=== PATIENT | female | born 1995 | race Caucasian/White ===

== ENCOUNTER 2016-12-07 19:41 | Emergency (ER) | payer OTHER, BC ==
[2016-12-07 19:58] VITALS: BP 117/80
--- NOTE | 2016-12-07 20:19 | UC ---
FLU HPI - HPI Summary HPI Summary: 21 year old female with 3 days of fever, headache, post nasal drip, cough and chest congestion She is concerned that she has the flu but did get a flu shot - History of Current Complaint Chief Complaint: UCGeneralIllness Stated Complaint: COUGH CONGESTION Time Seen by Provider: 12/07/16 20:11 Hx Obtained From: Patient Hx Last Menstrual Period: 12/07/16 ?: No Onset/Duration: Sudden Onset, Lasting Days - 3 Severity Currently: Moderate Severity Initially: Moderate Associated Signs & Symptoms: Positive: Fever - 101, T Max - 101, Myalgia, Cough , Sore Throat, Nasal Congestion, Headache. Negative: Vomiting, Diarrhea Related Hx: Possible Flu/Infectious Exposure - Risk Factors Influenza Risk Factors: Negative - Allergy/Home Medications Allergies/Adverse Reactions: Allergies Allergy/AdvReac Type Severity Reaction Status Date / Time Tree Nuts Allergy Swelling Verified 08/18/16 13:02 Of Face,Lips,& Throat PMH/Surg Hx/FS Hx/Imm Hx Previously Healthy: Yes Endocrine History Of: Denies: Diabetes Cardiovascular History Of: Denies: Cardiac Disorders Respiratory History Of: Denies: Asthma - Surgical History Surgical History: Yes Surgery Procedure, Year, and Place: wisdom teeth - Family History Known Family History: Positive: None, Respiratory Disease - Social History Occupation: Student Lives: With Family Alcohol Use: Occasionally Substance Use Type: None Smoking Status (MU): Never Smoked Tobacco - Immunization History Most Recent Influenza Vaccination: [id number] Review of Systems Constitutional: Fever, Chills Skin: Negative Eyes: Negative ENT: Sore Throat, Nasal Discharge Respiratory: Cough Cardiovascular: Negative Gastrointestinal: Negative Genitourinary: Negative Motor: Negative Neurovascular: Negative Musculoskeletal: Myalgia Neurological: Negative Psychological: Negative All Other Systems Reviewed And Are Negative: Yes Physical Exam Triage Information Reviewed: Yes Appearance: No Pain Distress, Well-Nourished, Ill-Appearing - mildly Vital Signs: Initial Vital Signs Temp 101 F 12/07/16 19:54 Pulse 101 12/07/16 19:54 Resp 17 12/07/16 19:54 BP 117/80 12/07/16 19:54 Pulse Ox 99 12/07/16 19:54 Vital Signs Reviewed: Yes Eyes: Positive: Conjunctiva Clear. Negative: Discharge ENT: Positive: Hearing grossly normal, Pharyngeal erythema, TMs normal. Negative: Nasal congestion, Nasal drainage, Tonsillar swelling Neck: Positive: Supple, Nontender, Enlarged Nodes @ - bilateral AC Respiratory: Positive: Lungs clear, Normal breath sounds, No respiratory distress Cardiovascular: Positive: RRR, No Murmur Abdomen Description: Positive: Nontender, No Organomegaly, Soft. Negative: CVA Tenderness (R), CVA Tenderness (L) Musculoskeletal: Positive: Strength Intact, ROM Intact Neurological: Positive: Alert, Muscle Tone Normal Psychological: Positive: Age Appropriate Behavior - pleasant and cooperative Skin: Negative: rashes, breakdown Flu Course/Dx - Course Course Of Treatment: Rapid Influenza A = Positive - Differential Dx/Diagnosis Differential Diagnosis/HQI/PQRI: Influenza, Upper Respiratory Infection Provider Diagnoses: Influenza A Discharge - Discharge Plan Condition: Stable Disposition: HOME Patient Education Materials: Influenza (ED) Referrals: Non Staff,Doctor [Primary Care Provider] - Additional Instructions: Take Tylenol 650mg - 1000 mg every 6 - 8 hours as needed for pain or fever Take Ibuprofen 600mg every 6 hour as needed for pain or fever
[2016-12-07] MEDS ORDERED: Ibuprofen TAB* 600 MG PO ONE (20:33)
== END 2016-12-07 21:00 | disposition home or self-care (01) ==
LOC: UCCORT 19:41
DX: J09.X2 Influenza due to identified novel influenza A virus with other respiratory manifestations (principal)
CPT/HCPCS: 87502; 99211; A9270-GY; G0463

== ENCOUNTER 2016-12-17 20:27 | Emergency (ER) | payer OTHER, BC ==
[2016-12-17 20:48] VITALS: BP 123/82
--- NOTE | 2016-12-17 21:09 | UC ---
Respiratory Complaint HPI - HPI Summary HPI Summary: 21 yo female was dxed with flu about 2 weeks ago cough persists productive at times has not had a fever for a while no CP or SOB now eyes red and matted shut in AM - History of Current Complaint Chief Complaint: UCGeneralIllness Stated Complaint: PINK EYE/COUGH/CONGESTION/SORE THROAT Time Seen by Provider: 12/17/16 21:02 Hx Obtained From: Patient Hx Last Menstrual Period: 12/05/16 Onset/Duration: Gradual Onset, Lasting Weeks Timing: Constant Severity Initially: Severe Severity Currently: Moderate Pain Intensity: 2 Pain Scale Used: 0-10 Numeric Character: Cough: Productive Aggravating Factors: Nothing Alleviating Factors: Nothing Associated Signs And Symptoms: Positive: Nasal Congestion - Allergies/Home Medications Allergies/Adverse Reactions: Allergies Allergy/AdvReac Type Severity Reaction Status Date / Time Tree Nuts Allergy Swelling Verified 12/17/16 20:48 Of Face,Lips,& Throat PMH/Surg Hx/FS Hx/Imm Hx Previously Healthy: Yes Endocrine History Of: Denies: Diabetes Cardiovascular History Of: Denies: Cardiac Disorders Respiratory History Of: Denies: Asthma - Surgical History Surgical History: Yes Surgery Procedure, Year, and Place: wisdom teeth - Family History Known Family History: Positive: Respiratory Disease - Social History Alcohol Use: Occasionally Substance Use Type: None Smoking Status (MU): Never Smoked Tobacco - Immunization History Most Recent Influenza Vaccination: [id number] Review of Systems Constitutional: Negative Skin: Negative Eyes: Drainage, Eye Redness ENT: Nasal Discharge Respiratory: Cough Cardiovascular: Negative Gastrointestinal: Negative Genitourinary: Negative Motor: Negative Neurovascular: Negative Musculoskeletal: Negative Neurological: Negative Psychological: Negative All Other Systems Reviewed And Are Negative: Yes Physical Exam Triage Information Reviewed: Yes Appearance: Well-Appearing, No Pain Distress, Well-Nourished Vital Signs: Initial Vital Signs Temp 99.6 F 12/17/16 20:45 Pulse 86 12/17/16 20:45 Resp 16 12/17/16 20:45 BP 123/82 12/17/16 20:45 Pulse Ox 99 12/17/16 20:45 Vital Signs Reviewed: Yes Eyes: Positive: Conjunctiva Inflamed, Discharge ENT: Positive: Hearing grossly normal, Nasal congestion, Nasal drainage, TMs normal. Negative: Tonsillar swelling, Tonsillar exudate, Trismus, Muffled/ hoarse voice Neck: Positive: Supple, Nontender, No Lymphadenopathy Respiratory: Positive: No respiratory distress, No accessory muscle use, Rhonchi Cardiovascular: Positive: RRR, No Murmur. Negative: Tachycardia, Bradycardia Musculoskeletal: Positive: Strength Intact, ROM Intact, No Edema Neurological Exam: Normal Neurological: Positive: Alert Psychological Exam: Normal Psychological: Positive: Decreased Age Appropriate Behavior UC Diagnostic Evaluation - Laboratory O2 Sat by Pulse Oximetry: 99 - normal/not hypoxic Respiratory Course/Dx - Differential Dx/Diagnosis Provider Diagnoses: acute bronchitis. bilateral conjunctivitis Discharge - Discharge Plan Condition: Stable Disposition: HOME Prescriptions: Amoxicillin (*) 875 mg PO BID #20 tab Patient Education Materials: Acute Bronchitis (ED) Referrals: Non Staff,Doctor [Primary Care Provider] - Additional Instructions: recheck in 4-5 days if not better
[2016-12-17] MEDS ORDERED: Amoxicillin PO (*) 500 MG CAP PO ONE (21:10)
[2016-12-17] MEDS ORDERED: Polymyx/Trimethoprim OPTH* 10 ML BTL BOTH EYES ONE (21:11)
== END 2016-12-17 21:27 | disposition home or self-care (01) ==
LOC: UCCORT 20:27
DX: J20.9 Acute bronchitis, unspecified (principal); H10.33 Unspecified acute conjunctivitis, bilateral
CPT/HCPCS: 99212; A9270-GY; G0463